=== PATIENT | male | born 1960 ===

== ENCOUNTER → 2022-10-18 13:08 | Outpatient (BNVA) | payer OTHER, SELFPAY | PROVIDERS: PCP Internal Medicine; Visit Provider Physician Assistant Surgical ==

== ENCOUNTER 2022-11-14 11:06 | Outpatient (REF) | payer OTHER, SELFPAY ==
[2022-11-15 14:36] LABS: H Pylori Breath Test Negative (Negative)
== END 2022-11-14 11:07 | disposition home or self-care (01) ==
LOC: HO.LNP 11:06
PROVIDERS: PCP Internal Medicine; Visit Provider Physician Assistant
DX: Z01.818 Encounter for other preprocedural examination (principal); E66.01 Morbid (severe) obesity due to excess calories; I10 Essential (primary) hypertension; E11.9 Type 2 diabetes mellitus without complications; E78.5 Hyperlipidemia, unspecified; Z71.3 Dietary counseling and surveillance
CPT/HCPCS: 83013; 99211

== ENCOUNTER 2022-11-14 11:06 | Outpatient (AMB) | payer OTHER, SELFPAY ==
--- NOTE | 2022-11-14 11:08 | A.OFFVIS_ITS ---
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 He was referred to us by his PCP. His goal is to have a healthy life. . He reports first being concerned about his weight 10 years.. He has tried multiple methods of weight loss including eating healthfully without permanent results. He lives alone. He is unemployed Has right hip pain and told he needs surgery- not seen by Ortho yet. He wakes at: 9am, bed at 10 pm. No naps Has been eating like this fro 6-7 months and has lost 70 lbs during this time. Breakfast:10 am - 2 eggs boiled water. BlackCoffee sometimes, small amoutnt of sugar Lunch: 2:30 - 3pm- meat and vegetables rice infrequently. water Dinner: 6-7 pm - meat and vegetables After dinner: none Other snacks: none Liquids: No soda, no juice or sweetened drinks Alcohol intake: 1 beer per year, tobacco: 1 cigarette per month, marijuana: uses it for right hip pain. Exercise: Uses walker for ambulation. Pool exercise - 4 - 5d/ week - depending on hip pain NE: 6 ESS: 21 GERD: 0 QOL: 146 PFSH Medical History (Updated 11/14/22 @ 12:57 by Colette Barrera PA-C) Pre-op evaluation Surgical History (Updated 11/14/22 @ 09:50 by KIMBERLY Kwan) H/O colonoscopy Social History (Updated 11/14/22 @ 11:22 by KIMBERLY Kwan) Household Members: None Housing: Apartment Alcohol intake: never Patient Tobacco Use Status: Never used Tobacco Current occupational status: unemployed Physical Exam Vital Signs: Last Vital Signs Temp 98.0 F 11/14/22 11:18 Pulse 54 11/14/22 11:18 Resp 16 11/14/22 11:18 BP 163/71 H 11/14/22 11:18 Pulse Ox 95 11/14/22 11:18 Oxygen Delivery Method Room Air 11/14/22 11:18 BMI result Body Mass Index 59.8 Const General: cooperative, no acute distress and well developed Nutritional Appearance: obese Orientation/consciousness: patient oriented x3 HEENT Head: Yes normal to inspection Neck Neck: Yes normal visual inspection Thyroid: Thyroid normal Resp Effort & Inspection: normal respiratory effort Auscultation: clear to auscultation bilaterally Cardio Rate: regular rate Rhythm: regular rhythm Heart sounds: S1 normal heart sound present, S2 normal heart sound present and no murmurs GI Inspection: No distended and Yes obesity Palpation (GI): Soft to palpation, nontender and no guarding Skin General skin exam: no rashes or lesions noted and other (warm and dry) Wounds: no wounds Hair: normal Neuro General: patient oriented x3 Extrem General: Yes no pedal edema and Yes no calf tenderness Psych Attitude: cooperative Thought process: Normal thought process present Thought content: Normal thought content present Insight: Good insight present (Psych) Judgement: Good judgement present (Psych) Assessment & Plan Assessment & Plan (1) Morbid obesity: Code(s): E66.01 - Morbid (severe) obesity due to excess calories Plan: This is a 61 yo man with morbid obesity and multiple co-morbidities who will start SWL program to prepare for bariatric surgery. Blood work, h pylori , CXR, ECG, Abd ULS and UGI have been ordered. She is being scheduled for RD and BH initial consultations. He will start SWL classes and watch at 3 classes before his next appt with Regina. Pt has lost 70 lbs over the lst 6 months by making multiple changes in his meal and exericse routines. I have ordered a SS also. 1. Adequate sleep of 7-8 hours per night discussed 2. Healthy meal plan - All meals/MR's need to take 20 minutes to complete 10am - 30 gram shake 1 pm - 30 gram shake 4 pm- bar or yogurt 7 pm- dinner of 6 oz lean protein, 6 oz vegetable, 1 serving fruit 9pm- bar or yogurt Exercise - Cardio 4 d week - pool exercises. 3d/wk P E videos for 30 minutes Pt will purchase body composition analyzer (recommended list given to patient) and weight herself weekly. Next appt with me in 3 weeks. Text me with any questions and weekly weights. Patient is morbidly obese and is not considered stable at this time.?I spent a total of 60 minutes reviewing/updating records, examining the patient and counseling the patient on weight management as detailed above. (2) HTN (hypertension), benign: Code(s): I10 - Essential (primary) hypertension (3) Diabetes mellitus: Code(s): E11.9 - Type 2 diabetes mellitus without complications (4) Hyperlipidemia: Code(s): E78.5 - Hyperlipidemia, unspecified Orders: Orders Insulin Today E11.9 - Type 2 diabetes mellitus without complications, E66.01 - Morbid (severe) obesity due to excess calories, E78.5 - Hyperlipidemia, unspecified, I10 - Essential (primary) hypertension, Z01.818 - Encounter for other preprocedural examination IRON PROFILE Today E11.9 - Type 2 diabetes mellitus without complications, E66.01 - Morbid (severe) obesity due to excess calories, E78.5 - Hyperlipidemia, unspecified, I10 - Essential (primary) hypertension, Z01.818 - Encounter for other preprocedural examination Complete Blood Count Auto Diff Today E11.9 - Type 2 diabetes mellitus without complications, E66.01 - Morbid (severe) obesity due to excess calories, E78.5 - Hyperlipidemia, unspecified, I10 - Essential (primary) hypertension, Z01.818 - Encounter for other preprocedural examination Comprehensive Met. Panel Today E11.9 - Type 2 diabetes mellitus without complications, E66.01 - Morbid (severe) obesity due to excess calories, E78.5 - Hyperlipidemia, unspecified, I10 - Essential (primary) hypertension, Z01.818 - Encounter for other preprocedural examination PTHI Today E11.9 - Type 2 diabetes mellitus without complications, E66.01 - Morbid (severe) obesity due to excess calories, E78.5 - Hyperlipidemia, unspecified, I10 - Essential (primary) hypertension, Z01.818 - Encounter for other preprocedural examination H Pylori Breath Test Today E11.9 - Type 2 diabetes mellitus without complications, E66.01 - Morbid (severe) obesity due to excess calories, E78.5 - Hyperlipidemia, unspecified, I10 - Essential (primary) hypertension, Z01.818 - Encounter for other preprocedural examination US abdomen comp w elastography Today E11.9 - Type 2 diabetes mellitus without complications, E66.01 - Morbid (severe) obesity due to excess calories, E78.5 - Hyperlipidemia, unspecified, I10 - Essential (primary) hypertension, Z01.818 - Encounter for other preprocedural examination XR chest 2V Today E11.9 - Type 2 diabetes mellitus without complications, E66.01 - Morbid (severe) obesity due to excess calories, E78.5 - Hyperlipidemia, unspecified, I10 - Essential (primary) hypertension, Z01.818 - Encounter for other preprocedural examination ECG 12 lead EKG Today E11.9 - Type 2 diabetes mellitus without complications, E66.01 - Morbid (severe) obesity due to excess calories, E78.5 - Hyperlipidemia, unspecified, I10 - Essential (primary) hypertension, Z01.818 - Encounter for other preprocedural examination FL upper GI w air Today E11.9 - Type 2 diabetes mellitus without complications, E66.01 - Morbid (severe) obesity due to excess calories, E78.5 - Hyperlipidemia, unspecified, I10 - Essential (primary) hypertension, Z01.818 - Encounter for other preprocedural examination RT home sleep study Today E66.01 - Morbid (severe) obesity due to excess calories, R40.0 - Somnolence Lipid Panel Today E11.9 - Type 2 diabetes mellitus without complications, E66.01 - Morbid (severe) obesity due to excess calories, E78.5 - Hyperlipidemia, unspecified, I10 - Essential (primary) hypertension, Z01.818 - Encounter for other preprocedural examination Vitamin B12 and Folate Today E11.9 - Type 2 diabetes mellitus without complications, E66.01 - Morbid (severe) obesity due to excess calories, E78.5 - Hyperlipidemia, unspecified, I10 - Essential (primary) hypertension, Z01.818 - Encounter for other preprocedural examination Zinc Today E11.9 - Type 2 diabetes mellitus without complications, E66.01 - Morbid (severe) obesity due to excess calories, E78.5 - Hyperlipidemia, unspecified, I10 - Essential (primary) hypertension, Z01.818 - Encounter for other preprocedural examination Vitamin B1 Today E11.9 - Type 2 diabetes mellitus without complications, E66.01 - Morbid (severe) obesity due to excess calories, E78.5 - Hyperlipidemia, unspecified, I10 - Essential (primary) hypertension, Z01.818 - Encounter for other preprocedural examination Vitamin A Today E11.9 - Type 2 diabetes mellitus without complications, E66.01 - Morbid (severe) obesity due to excess calories, E78.5 - Hyperlipidemia, unspeci fied, I10 - Essential (primary) hypertension, Z01.818 - Encounter for other preprocedural examination C Reactive Protein Today E11.9 - Type 2 diabetes mellitus without complications, E66.01 - Morbid (severe) obesity due to excess calories, E78.5 - Hyperlipidemia, unspecified, I10 - Essential (primary) hypertension, Z01.818 - Encounter for other preprocedural examination Ferritin Today E11.9 - Type 2 diabetes mellitus without complications, E66.01 - Morbid (severe) obesity due to excess calories, E78.5 - Hyperlipidemia, unspecified, I10 - Essential (primary) hypertension, Z01.818 - Encounter for other preprocedural examination TSH reflex Free T4 Today E11.9 - Type 2 diabetes mellitus without complications, E66.01 - Morbid (severe) obesity due to excess calories, E78.5 - Hyperlipidemia, unspecified, I10 - Essential (primary) hypertension, Z01.818 - Encounter for other preprocedural examination Vitamin D 25-OH Total Today E11.9 - Type 2 diabetes mellitus without complications, E66.01 - Morbid (severe) obesity due to excess calories, E78.5 - Hyperlipidemia, unspecified, I10 - Essential (primary) hypertension, Z01.818 - Encounter for other preprocedural examination Hemoglobin A1c Today E11.9 - Type 2 diabetes mellitus without complications, E66.01 - Morbid (severe) obesity due to excess calories, E78.5 - Hyperlipidemia, unspecified, I10 - Essential (primary) hypertension, Z01.818 - Encounter for other preprocedural examination Referrals Behavioral Health Referral E11.9 - Type 2 diabetes mellitus without complications, E66.01 - Morbid (severe) obesity due to excess calories, E78.5 - Hyperlipidemia, unspecified, I10 - Essential (primary) hypertension, Z01.818 - Encounter for other preprocedural examination Nutrition/Dietitian Referral E11.9 - Type 2 diabetes mellitus without complications, E66.01 - Morbid (severe) obesity due to excess calories, E78.5 - Hyperlipidemia, unspecified, I10 - Essential (primary) hypertension, Z01.818 - Encounter for other preprocedural examination Coding Level of Care Code New Pt Level 5 (68660) Diagnoses Morbid obesity E66.01 HTN (hypertension), benign I10 Diabetes mellitus E11.9 Hyperlipidemia E78.5
[2022-11-14 11:18] VITALS: BP 163/71; PULSE 54; RESP 16; TEMP 36.7; O2SAT 95; BMI 59.8
== END 2022-11-14 12:59 | disposition home or self-care (01) ==
PROVIDERS: PCP Internal Medicine; Visit Provider Physician Assistant
DX: E66.01 Morbid (severe) obesity due to excess calories (principal); Z68.43 Body mass index [BMI] 50.0-59.9, adult; E11.9 Type 2 diabetes mellitus without complications; I10 Essential (primary) hypertension; E78.5 Hyperlipidemia, unspecified
CPT/HCPCS: 99205

== ENCOUNTER 2022-12-03 08:31 | Outpatient (REF) | payer OTHER, SELFPAY ==
--- NOTE | ~2022-12-03 | XR_ITS ---
EXAMINATION: XR CHEST CLINICAL INFORMATION: Morbid (severe) obesity due to excess calories COMPARISON: None available. TECHNIQUE: 2 views of the chest were obtained. FINDINGS: Lung volumes are low. No significant abnormality is noted involving the heart, lungs, mediastinum or soft tissues. There are moderate degenerative changes of the thoracic spine. There is loss of height of multiple mid thoracic vertebral bodies. XR/XR chest 2V IMPRESSION: No acute cardiopulmonary disease.
[2022-12-03 08:52] LABS: MANUAL DIFF FLAG NO
[2022-12-03 09:07] LABS: Basophils Percent Auto 0.4 % (0-2); Eosinophils Absolute Auto 0.1 X10*3/uL (0.0-0.4); Eosinophils Percent Auto 1.5 % (0-4); Hematocrit 48.2 % (42.0-52.0); Hemoglobin 16.1 g/dl (14.0-18.0); Imm Gran Abs Auto 0.02 X10*3/uL (0.00-0.03); Imm Gran Pct Auto 0.2 % (0.0-0.4); Lymphocytes Absolute Auto 3.6 X10*3/uL (1.2-4.9); Lymphocytes Percent Auto 38.5 % (20-40); Mean Corpuscular HGB Conc 33.4 g/dl (31.0-36.0); Mean Corpuscular Volume 89.8 fL (80.0-98.0); Mean Platelet Volume 9.6 fL (9.4-12.4); Monocytes Absolute Auto 0.6 X10*3/uL (0.1-1.2); Monocytes Percent Auto 6.9 % (2-11); Neutrophils Absolute Auto 4.9 x10*3/uL (2.0-8.3); Neutrophils Percent Auto 52.5 % (45-73); Platelet Count 235 X10*3/uL (160-400); Red Blood Count 5.37 X10*6/uL (4.60-5.80); Red Cell Distribution Width 13.1 % (11.0-16.0); White Blood Count 9.3 X10*3/uL (4.8-10.8)
[2022-12-03 09:49] LABS: Alanine Aminotransferase 21 U/L (0-40); Alkaline Phosphatase 63 U/L (39-117); Anion Gap 13 (12-20); Aspartate Amino Transferase 14 U/L (5-37); Bilirubin Total 0.8 mg/dL (0.0-1.0); Blood Urea Nitrogen 24 mg/dL (9-16); C Reactive Protein 0.23 mg/dL (< or = 0.50); Calcium 9.4 mg/dL (8.4-10.2); Carbon Dioxide 22 mmol/L (22-29); Chloride 109 mmol/L (96-108); Cholesterol 228 mg/dL (<200); Estimated Glomerular Filt Rate > 60; Glucose Random 147 mg/dL (60-115); HDL Cholesterol 36 mg/dL (>40); Iron 180 mcg/dL (45-160); LDL Cholesterol Calculated 150 mg/dL (<100); Percent Iron Saturation 60 % (15-50); Sodium 140 mmol/L (135-145); Total Iron Binding Capacity 300 mcg/dL (228-428); Total Protein 7.7 g/dL (6.5-8.0); Triglycerides 211 mg/dL (<150); Unsaturated Iron Binding 120 ug/dL
[2022-12-03 09:51] LABS: Estimated Average Glucose 137 mg/dL; Hemoglobin A1c % 6.4 % (<6.0)
[2022-12-03 10:09] LABS: Ferritin 309 ng/mL (20-250); Insulin 11 uU/mL (2-29); TSH reflex Free T4 2.03 uIU/mL (0.32-4.0); Vitamin D 25-OH Total 26.6 ng/mL (>30)
[2022-12-03 10:12] LABS: Folate 14.4 ng/mL (> or = 4.0); Vitamin B12 380 pg/mL (200-900)
[2022-12-04 15:48] LABS: Calcium (PTHI) 9.4 mg/dL (8.6-10.3); PTHI 95 pg/mL (16-77)
[2022-12-05 15:19] LABS: Zinc 79 mcg/dL (60-130)
[2022-12-07 04:58] LABS: Vitamin A 53 mcg/dL (38-98)
[2022-12-08 10:28] LABS: Vitamin B1 14 nmol/L (8-30)
== END 2022-12-03 08:32 | disposition home or self-care (01) ==
LOC: HO.XRAY 08:31
PROVIDERS: PCP Internal Medicine; Visit Provider Physician Assistant
DX: Z01.818 Encounter for other preprocedural examination (principal); E66.01 Morbid (severe) obesity due to excess calories; I10 Essential (primary) hypertension; E11.9 Type 2 diabetes mellitus without complications; E78.5 Hyperlipidemia, unspecified
CPT/HCPCS: 36415; 71046; 80053; 80061; 82306; 82607; 82728; 82746; 83036; 83525; 83540; 83970; 84425; 84443; 84590; 84630; 85025; 86140

== ENCOUNTER 2022-12-11 11:06 | Outpatient (AMB) | payer OTHER, SELFPAY ==
--- NOTE | 2022-12-11 11:17 | MHC.AMNUTRGE ---
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 Reason for consult elevated BMI Diet Assmnt Details Pt states he feels much better, more energy, easier to wake up in the morning 10am shake 1 scoop Orgain 8oz water - also adds fruit - was advised to discontinue this 2 eggs 1pm another shake made the same way 4-5pm dinner salad and chicken 7pm yogurt or protein bar - fitcrunch Dietary counseling reduction Learning/Education Educational materials provided Yes Most Recent Diabetes Results: Cholesterol 228 mg/dL (<200) H 12/03/22 HDL Cholesterol 36 mg/dL (>40) L 12/03/22 Triglycerides 211 mg/dL (<150) H 12/03/22 Creatinine 0.96 mg/dL (0.5-1.4) 12/03/22 Blood Urea Nitrogen 24 mg/dL (9-16) H 12/03/22 Sodium 140 mmol/L (135-145) 12/03/22 Potassium 4.0 mmol/L (3.3-5.1) 12/03/22 Chloride 109 mmol/L (96-108) H 12/03/22 Carbon Dioxide 22 mmol/L (22-29) 12/03/22 Calcium 9.4 mg/dL (8.4-10.2) 12/03/22 AST 14 U/L (5-37) 12/03/22 ALT 21 U/L (0-40) 12/03/22 Total Protein 7.7 g/dL (6.5-8.0) 12/03/22 Albumin 4.0 g/dL (3.5-5.0) 12/03/22 [facility] Medical History (Updated 11/14/22 @ 12:57 by Colette Barrera PA-C) Pre-op evaluation Surgical History (Updated 11/14/22 @ 09:50 by KIMBERLY Kwan) H/O colonoscopy Social History (Updated 11/14/22 @ 11:22 by KIMBERLY Kwan) Household Members: None Housing: Apartment Alcohol intake: never Patient Tobacco Use Status: Never used Tobacco Current occupational status: unemployed Assessment & Plan Assessment & Plan (1) Morbid obesity: Code(s): E66.01 - Morbid (severe) obesity due to excess calories Patient Instructions: pt is cleared for bariatric surgery. will continue follow ups with team adn encouraged communication as needed with office Coding Level of Care Code Nutr Indiv Intake (98291) Diagnoses Morbid obesity E66.01 Time Spent (min) 30
[2022-12-11 13:08] VITALS: BMI 57.6
== END 2022-12-11 12:43 | disposition home or self-care (01) ==
PROVIDERS: PCP Internal Medicine; Visit Provider Dietitian, Registered
DX: E66.01 Morbid (severe) obesity due to excess calories (principal)

== ENCOUNTER → 2022-12-11 11:06 | Outpatient (BNVA) | payer OTHER, SELFPAY | PROVIDERS: PCP Internal Medicine; Visit Provider Dietitian, Registered | DX: E66.01 Morbid (severe) obesity due to excess calories (principal); Z68.43 Body mass index [BMI] 50.0-59.9, adult | CPT/HCPCS: 97802 ==

== ENCOUNTER 2022-12-18 09:30 | Outpatient (AMB) | payer OTHER, SELFPAY ==
--- NOTE | 2022-12-18 09:36 | MHC.OFFVISWM ---
Intake VS Expanded 12/18/22 09:48 Height 5 ft 8 in Weight 379 lb BMI 57.6 Intake Visit Reasons: VIDEO F/U SWL Allergies No Known Allergies Allergy (Verified 11/14/22 11:20) HPI HPI Comments History of Present Illness Details This is the patients second appt for SWL. Starting weight was 393.1 lbs on 11/14/22. TBWL is 14.1 lbs or 3.6% TBWL by his weight in our office 2 days ago. He has not bought a scale yet. Meal plan: feels incredible! 10am - Orgain powder with aqua, with2 hb eggs 1pm - another shake 5pm - (uses scale and has 6 - 8 oz)protein air fried and vegetables 9pm yogurt Exercise plan: exercise in pool for 80 minutes, 4 d/week.Can not exercise out of p[ool ofr now. Pre op work up completed as follows: SWL classes - 09/25 appts - Maria 12/20 RD appts - cleared H pylori - negative Labs - done CXR normal ECG - not done yet ULS and UGI - 12/20 and 12/24 [facility] Medical History (Updated 11/14/22 @ 12:57 by Colette Barrera PA-C) Pre-op evaluation Surgical History (Updated 11/14/22 @ 09:50 by KIMBERLY Kwan) H/O colonoscopy Social History (Updated 11/14/22 @ 11:22 by KIMBERLY Kwan) Household Members: None Housing: Apartment Alcohol intake: never Patient Tobacco Use Status: Never used Tobacco Current occupational status: unemployed Assessment & Plan Assessment & Plan (1) Morbid obesity: Code(s): E66.01 - Morbid (severe) obesity due to excess calories Plan: Good start and excellent meal plan so far. We discussed that he can not exercise out of the pool yet and he will continue his present routien for now. Meal plan - measure dinner in 12 forks each of protein and vegetable He MUST purchase a scale now and send me his weights weekly. Has many appts this week - all reviewed will also get ECG doen thsi week Next appt with me in 3 weeks. Patient is still morbidly obese and is not considered stable at this time. I spent 27 minutes in total speaking with the patient via video conference counseling , reviewing records and charting in patients chart. . (2) HTN (hypertension), benign: Code(s): I10 - Essential (primary) hypertension (3) Diabetes mellitus: Code(s): E11.9 - Type 2 diabetes mellitus without complications (4) Hyperlipidemia: Code(s): E78.5 - Hyperlipidemia, unspecified Telehealth Telehealth Location of provider rendering services: practice address Location of patient: address on file Patient Identification confirmed using: Name, : Yes Telehealth method: video Patient verbally consented to treatment: Yes Patient verbally consented to billing insurance company: Yes Patient informed of any privacy concerns related to visit: Yes Coding Level of Care Code Tele Est Pt Level 4 (50653) Diagnoses Morbid obesity E66.01 HTN (hypertension), benign I10 Diabetes mellitus E11.9 Hyperlipidemia E78.5
[2022-12-18 09:48] VITALS: BMI 57.6
== END 2022-12-18 10:00 | disposition home or self-care (01) ==
LOC: HO.HBS 09:58
PROVIDERS: PCP Internal Medicine; Visit Provider Physician Assistant
DX: E66.01 Morbid (severe) obesity due to excess calories (principal); Z68.43 Body mass index [BMI] 50.0-59.9, adult; I10 Essential (primary) hypertension; E11.9 Type 2 diabetes mellitus without complications; E78.5 Hyperlipidemia, unspecified
CPT/HCPCS: 99213

== ENCOUNTER → 2022-12-18 09:30 | Outpatient (BNVA) | payer OTHER, SELFPAY | PROVIDERS: PCP Internal Medicine; Visit Provider Physician Assistant ==

== ENCOUNTER 2022-12-20 07:38 | Outpatient (REF) | payer OTHER, SELFPAY ==
--- NOTE | ~2022-12-20 | FL_ITS ---
EXAMINATION: XR FLUOROSCOPY UPPER GI WITH AIR CLINICAL INFORMATION: Preop evaluation for bariatric surgery COMPARISON: None TECHNIQUE: Fluoroscopic air contrast upper GI examination was performed utilizing standard techniques with thin and thick barium and effervescent granules. Numerous spot images were obtained. Fluoroscopic image hold cine runs were also obtained. FINDINGS: No abnormality noted in the hypopharynx. No laryngeal penetration. Dual and single contrast images of the esophagus demonstrate normal caliber, contour, and mucosal pattern. No evidence of stricture, mass, or ulcerations identified. Primary esophageal peristalsis was normal. There are some tertiary contractions that are nonpulsatile, which indicate mild esophageal dysmotility. A tiny type I hiatal hernia is present. Gastroesophageal reflux is seen up to the thoracic inlet. Dual contrast and single contrast images of the stomach demonstrated normal contour and mucosal pattern without evidence of mass, ulceration, or other abnormality. Contrast freely passed into the gastric antrum and duodenal bulb without delay. Single and air-contrast images of the duodenal bulb demonstrate no abnormality. The duodenal sweep has a normal appearance, course, and mucosal fold appearance. The imaged proximal jejunum has a normal fold pattern and caliber. Incidental note made of [id number] mid and inferior thoracic and lumbar degenerative spondylosis. FLUOROSCOPY TIME: 4 minutes. Number of Spot Images: 6 Number of cine: 6 DOSE AREA PRODUCT: 11499 uGy-m2 (microgray-meter squared) FL/FL upper GI w air IMPRESSION: 1. Mild presbyesophagus 2. Tiny type I hiatal hernia 3. Significant gastroesophageal reflux noted to the level of the thoracic inlet. 4. Normal stomach, duodenal bulb, sweep, and proximal jejunum. This procedure was performed by Bright Martin PA-C, and supervised by Dr. Toledo.
--- NOTE | 2022-12-20 08:33 | ECG_ITS ---
Test Reason : morbid obesity Blood Pressure : / mmHG Vent. Rate : 058 BPM Atrial Rate : 058 BPM P-R Int : 144 ms QRS Dur : 076 ms QT Int : 412 ms P-R-T Axes : 048 -21 016 degrees QTc Int : 404 ms Sinus bradycardia Low voltage QRS Borderline ECG No previous ECGs available Referred By: Colette Barrera Electronically Signed By:BRITTANY PACK MD
== END 2022-12-20 07:39 | disposition home or self-care (01) ==
LOC: HO.XRAY 07:38
PROVIDERS: PCP Internal Medicine; Visit Provider Physician Assistant
DX: Z01.818 Encounter for other preprocedural examination (principal); E66.01 Morbid (severe) obesity due to excess calories; I10 Essential (primary) hypertension; E11.9 Type 2 diabetes mellitus without complications; E78.5 Hyperlipidemia, unspecified
CPT/HCPCS: 74246; 93005

== ENCOUNTER → 2022-12-20 07:39 | Outpatient (BNV) | payer OTHER, SELFPAY | PROVIDERS: PCP Internal Medicine; Visit Provider Radiology Diagnostic Radiology | DX: E66.01 Morbid (severe) obesity due to excess calories (principal); Z01.818 Encounter for other preprocedural examination | CPT/HCPCS: 74246 ==

== ENCOUNTER 2022-12-24 07:44 | Outpatient (REF) | payer OTHER, SELFPAY ==
--- NOTE | ~2022-12-24 | US_ITS ---
EXAMINATION: US COMPLETE ABDOMEN WITH LIVER ELASTOGRAPHY CLINICAL INFORMATION: Obesity. COMPARISON: None available. TECHNIQUE: Real-time imaging of the abdominal viscera. Noninvasive ultrasound liver fibrosis assessment is performed using Stevie ElastPQ point quantification shear wave elastography (2D-SWE) with a C5-2 MHz transducer. Multiple elastography samples are obtained. FINDINGS: PANCREAS: Largely obscured by overlapping bowel gas. ABDOMINAL AORTA: The proximal, middle, and distal aortic segments are normal in caliber. INFERIOR VENA CAVA: Visualized portions are normal. LIVER: The liver demonstrates normal size, contour and increased echogenicity. No focal lesion or intrahepatic biliary duct dilatation. The right lobe measures 17.9 cm in length. The left lobe measures 9.6 cm in length. Portal flow is towards the liver (hepatopetal). Shear wave liver elastography median stiffness is 1.63 m/s (reference: normal median stiffness is 1.3 m/s or less). IQR/median stiffness to assess sampling precision is 0.14 (reference: good quality data set is IQR/median stiffness of 0.15 or less). GALLBLADDER: Normal. The gallbladder is physiologically distended without evidence of stones, sludge, polyps, wall thickening or pericholecystic fluid. COMMON BILE DUCT: Normal in caliber measuring 0.4 cm in diameter. RIGHT KIDNEY: Normal. No hydronephrosis. No renal calculi or focal parenchymal lesions. The kidney measures 10.1 cm in maximum dimension. LEFT KIDNEY: Normal. No hydronephrosis. No renal calculi or focal parenchymal lesions. The kidney measures 12.1 cm in maximum dimension. SPLEEN: Normal. The spleen measures 10.8 cm in maximum dimension. FREE FLUID: None. US/US abdomen comp w elastography IMPRESSION: 1. There is mild hepatomegaly. 2. There is generalized increase in hepatic echotexture, consistent with fatty infiltration or hepatocellular disease. Please correlate clinically. No focal hepatic mass or intrahepatic biliary dilatation is seen. 3. Liver elastography: In the absence of other known clinical signs, measurements rule out compensated advanced chronic liver disease. If there are known clinical signs, further testing may be needed for confirmation. REFERENCE: Society of Radiologists in Ultrasound Liver Stiffness Thresholds (2020): LIVER STIFFNESS THRESHOLDS: *Liver Stiffness equal or less than 1.3 m/s: High probability of being normal. *Liver Stiffness less than 1.7 m/s: In the absence of other known clinical signs, rules out compensated advanced chronic liver disease. *Liver Stiffness 1.7-2.1 m/s: Suggestive of compensated advanced chronic liver disease but need further test for confirmation. *Liver Stiffness over 2.1 m/s: Rules in compensated advanced chronic liver disease. *Liver Stiffness over 2.4 m/s: Suggestive of clinically significant portal hypertension. QUALITY OF DATA SET: *IQR/Median value equal or less than 0.15 implies a quality data set. *IQR/Median value over 0.15 implies a poor quality data set. SIGNIFICANT CHANGE FROM PRIOR EXAM: Significant change if liver stiffness measurement is 10% or greater from prior exam. OTHER CONSIDERATIONS: The stage of liver fibrosis may be overestimated in the setting of acute hepatitis, liver inflammation, elevated liver function tests, hepatic vascular congestion, obstructive cholestasis, non-fasting state, and infiltrative diseases such as amyloidosis and lymphoma. In some patients with NAFLD, the liver stiffness thresholds for compensated advanced chronic liver disease may be lower. In causes other than viral hepatitis and NAFLD, liver stiffness thresholds are not well established.
== END 2022-12-24 07:45 | disposition home or self-care (01) ==
LOC: HO.US 07:44
PROVIDERS: PCP Internal Medicine; Visit Provider Physician Assistant
DX: Z01.818 Encounter for other preprocedural examination (principal); E66.01 Morbid (severe) obesity due to excess calories; I10 Essential (primary) hypertension; E11.9 Type 2 diabetes mellitus without complications; E78.5 Hyperlipidemia, unspecified
CPT/HCPCS: 76705; 76981

== ENCOUNTER → 2022-12-25 14:17 | Outpatient (REF) | payer OTHER, SELFPAY | LOC: HO.SL 14:17 | PROVIDERS: PCP Internal Medicine; Visit Provider Physician Assistant | DX: Z13.89 Encounter for screening for other disorder (principal) ==

== ENCOUNTER 2022-12-26 09:23 | Outpatient (AMB) | payer OTHER, SELFPAY ==
--- NOTE | 2022-12-26 09:21 | MHC.WMTHER ---
Intake Intake Visit Reasons: (TV) BH Intake Allergies No Known Allergies Allergy (Verified 11/14/22 11:20) [facility] Medical History (Updated 11/14/22 @ 12:57 by Colette Barrera PA-C) Pre-op evaluation Surgical History (Updated 11/14/22 @ 09:50 by KIMBERLY Kwan) H/O colonoscopy Social History (Updated 11/14/22 @ 11:22 by KIMBERLY Kwan) Household Members: None Housing: Apartment Alcohol intake: never Patient Tobacco Use Status: Never used Tobacco Current occupational status: unemployed Behavioral Health Assessment Weight Management Therapy Therapy Notes Details Pt is a 61 years old male, who presents for initial behavioral health assessment as part of surgical weight-loss program. PT shares his intereste in bariatric surgery due to medical issues and physical challenges he wants to overcome. PT denied any history of mental health treatment and or past hospitalization/crisis for behavioral health. Denies any safety concerns around SI and/or self-other harm, also there is no history of substance use reported. There is also no evidence for stress/emotional-eating, and scores from BES suggest minimal risk for binge eating behavior. PHQ- scores also showed no active symptoms/concerns with depression. Mental status exam is withing normal limits, suggesting person's functioning is not impaired. At this time patient is cleared from the behavioral health standpoint. Presenting Concerns Referral Source WMP Provider. PT sees Colette Pugh Reason for referral Completion of behavioral health assessment as part of process for weight-loss surgery. Precipitating Event Obesity and other medical issues related to his weight. Living Situation Current Living Situation Rent At risk of losing current housing? No Satisfied with current living situation? Yes Comments Pt lives alone. Food/Weight/Diet Expectations of change PT started program at 393Lbs. He needs to loss 10% of that before surgery. He has lost 14Lbs as of 12/18. History/Relationship with food PT reports he used to snack a lot, had big portions, a multiple carbs in 1 meal. Also was eating fast food and sweets a lot. . Example of meals before starting program Breakfast: 2 hard boiled eggs with oil, with crackers and coffee with sugar. AM snack: none Lunch: @2pm any potatoes/yuca/name with any meat in the air fryer. W/ water. Dinner: leftovers from lunch. picking here and there trough the day , Example: crackers with hoover, coffee w/ sugar. History/Relationship with weight Highest weight was last year, 440Lbs. He started doing a diet on his own and insulin was changed so his appetite decreased. When started the program he was 393Lbs. 5 years ago he was around 460Lbs. He doesn't remember when he was under 200Lbs. But believes was on his 20's before getting in a relationship. And, he has not been under 300Lbs more than 10 years ago. Reports she has been overweight all of his life. History/Relationship with dieting Never tried any formal diet or medication for weight loss. Diet/exercise. Younger he was able to lost weight rapid, but as older he gets then he has a harder time losing weight. In the past year he has been able to lose 50Lbs as his PCP give him some nutrition counseling and insulin was changed and helped him with appetite. Binge Eating Do you frequently eat large amounts of food in short periods of time, not feeling physically hungry? No Do you feel out of control when you eat a large amount of food in a short period of time? Yes Do you eat large amounts of food rapidly and typically alone? Yes Night Eating Do you wake up at least once during the night to eat? No If you wake up in the night, do you find that it is necessary to eat something in order to fall back asleep? No Do you have little or no appetite in the morning and feel very hungry in the evening, often overeating between dinner and when you go to bed? No Social History Family history and relationship Pt is single. He has 3 adult children and 9 grandkids. 1 son lives in [place] and 1 son and 1 daughter living in [place]. They all have good communication. 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 Developmental history and status None reported. Social support He's has a cousin who lives close to him and help him with his appointments. Community support PCP. Hindu/Spirituality [place]. Cultural/Ethnic information PT was born in [place]. Living in [place] 3 years ago as most of his family was here. Pt is Hungarian-speaking only. Legal Involvement and History Current or historical involvement with the legal system? None reported. Education Highest grade completed HS diploma. Associate Degree in computer technology. 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 Preferred learning style Written and Learn by doing Currently enrolled in educational program? No Interested in further educational program? No Educational Interests/Skills Home repairs. 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 No Meaningful activities Swimming, listen to music and watch TV. Financial Situation Describe current financial situation Comfortable Financial assistance? Food [place], SSI and Other (Rental assistance.) Service Service? No Mental Health and Addiction Treatment Current/Past substance abuse? Yes Comments Hx of Cannabis use as a teen. Smokes once in a while. Doesn't drink. Current/Past addictive behavior concerns? No Psychiatric history Denies ever been in counseling, take psych meds and/or hospitalized/crisis for MH. Never experiences SI/Sa and/or any other safety concern around self-harm/other-harm. Medical and Physical Health Summary Additional Medical History not covered in history None reported. Sexual History concerns None reported. Physical exam in the last year? Yes Pain Screening Current pain? Yes Pain in the last few months? Yes Comments Hip pain. Has a hard time walking, deals with pain on a daily basis. However, pain has been improving since started the program and is swimming regularly. Medications Is the patient compliant with medications? Yes Does the patient have Herr Guardian in place? Not applicable Does the patient use complimentary health approaches? No Trauma/Abuse History History of trauma? No Questionnaires PHQ-9 Over the last 2 weeks, how often have you been bothered by any of the following problems? 1. Little interest or pleasure in doing things: not at all 2. Feeling down, depressed, or hopeless: not at all 3. Trouble falling or staying asleep, or sleeping too much: not at all 4. Feeling tired or having little energy: not at all 5. Poor appetite or overeating: not at all 6. Feeling bad about yourself - or that you are a failure or have let yourself or your family down: not at all 7. Trouble concentrating on things, such as reading the newspaper or watching television: several days 8. Moving or speaking so slowly that other people could have noticed. Or the opposite - being so fidgety or restless that you have been moving around a lot more than usual: not at all 9. Thoughts that you would be better off or of hurting yourself in some way: not at all Total score: 1 Depression Screening Interpretation: Negative Depression Screening Done: Yes 40725 - PHQ-9 Billing: Yes (PHQ-9 Repeated today as he scored high when questionarie was given couple months ago.) Source: Developed by Drs. Abad Blanc, Verónica Marroquin, Ruben Brown and colleagues, with an educational mohan from [employer]. Binge Eating Scale Group 1 A. I don't feel self-conscious about my wt. or body size when I'm with others. B. I feel concerned about how I look to others, but it normally does not make me fell disappointed with myself C. I do get self-conscious about my appearance and wt. which makes me feel disappointed in myself. D. I feel very self-conscious about my wt. and frequently I feel intense shame and disgust for myself. I try to avoid social contacts because of my self-consciousness. Response Group 1: A Group 2 A. I don't have any difficulty eating slowly in the proper manner. B. Although I seem to gobble down foods, I don't end up feeling stuffed because of eating to much. C. At times, I tend to eat quickly and then, I feel uncomfortably full afterwards. D. I have the habit of bolting down my food, without really chewing it. When this happens I usually feel uncomfortably stuffed because I've eaten to much. Response Group 2: C Group 3 A. I feel capable to control my eating urges when I want to. B. I feel like I have failed to control my eating more than the average person. C. I feel utterly helpless when it comes to feeling in control of my eating urges. D. Because I feel so helpless about controlling my eating I have become very desperate about trying to get control. Response Group 3: B Group 4 A. I don't have the habit of eating when I'm bored. B. I sometimes eat when I'm bored, but often I'm able to get busy and get my mind off food. C. I have a regular habit of eating when I'm bored, but occasionally, I can use some other activity to get my mind off eating. D. I have a strong habit of eating when I'm bored. Nothing seems to help me breath the habit. Response Group 4: B Group 5 A. I'm usually physically hungry when I eat something. B. Occasionally, I eat something on impulse even though I really am not hungry. C. I have the regular habit of eating foods, that I might not really enjoy, to satisfy a hungry feeling even though physically, I don't need the food. D. Although I'm not physically hungry, I get a hungry feeling in my mouth that only seems to be satisfied when I eat a food, like sandwich, that fills my mouth. Sometimes, when I eat the food to satisfy my mouth hunger, I then spit the food out so I won't gain weight. Response Group 5: B Group 6 A. I don't feel any guilt or self-hate after I overeat. B. After I overeat, occasionally I feel guilt or self-hate. C. Almost all the time I experience strong guilt or self-hate after I overeat. Response Group 6: A Group 7 A. I don't lose total control of my eating when dieting even after periods when I overeat. B. Sometimes when I eat a forbidden food on a diet, I feel like I blew it and eat even more. C. Frequently, I have the habit of saying to myself, I've blown it now, why not go all the way, when I overeat on a diet. When that happens I eat more. D. I have a regular habit of starting a strict diets for myself but I break the diets by going on an eating binge. My life seems to be either a feast or famine. Response Group 7: C Group 8 A. I rarely eat so much food that I feel uncomfortably stuffed afterwards. B. Usually about once a month, I each such a quantity of food, I end up feeling very stuffed. C. I have regular periods during the month when I eat large amounts of food, either at mealtime or at snacks. D. I eat so much food that I regularly feel quite uncomfortable after eating and sometimes a bit nauseous. Response Group 8: B Group 9 A. My level of calorie intake does not go up very high or go down very low on a regular basis. B. Sometimes after I overeat, I will try to reduce my caloric intake to almost nothing to compensate for the excess calories I've eaten. C. I have a regular habit of overeating during the night. It seems that my routine is not to be hungry in the morning but overeat in the evening. D. In my adult years, I have had week-long periods where I practically starve myself. This follows periods when I overeat. It seems I live a life of either feast or famine. Response Group 9: B Group 10 A. I usually am able to stop eating when I want to. I know when enough is enough. B. Every so often, I experience a compulsion to eat which I can't seem to control. C. Frequently, I experience strong urges to eat which I seem unable to control, but at other times I can control my eating urges. D. I feel incapable of controlling urges to eat. I have a fear of not being able to stop eating voluntarily. Response Group 10: C Group 11 A. I don't have any problem stopping eating when I feel full. B. I usually can stop eating when I feel full but occasionally overeat leaving me feeling uncomfortably stuffed. C. I have a problem stopping eating once I start and usually I feel uncomfortably stuffed after I eat a meal. D. Because I have a problem not being able to stop eating when I want, I sometimes have to induce vomiting to relieve my stuffed feeling. Response Group 11: B Group 12 A. I seem to eat just as much when I'm with others, Family social gatherings as when I'm by myself. B. Sometimes, when I'm with other persons, I don't eat as much as I want to eat because I'm self-conscious about my eating. C. Frequently, I eat only a small amount of food when others are present, because I'm very embarrassed about my eating. D. I feel so ashamed about overeating that I pick times to overeat when I know no one will see me. I feel like a closet eater. Response Group 12: B Group 13 A. I eat three meals a day with only an occasional between meal snack. B. I eat 3 meals a day, but I also normally snack between meals. C. When I am snacking heavily, I get in the habit of skipping regular meals. D. There are regular periods when I seem to be continually eating, with no planned meals. Response Group 13: A Group 14 A. I don't think much about trying to control unwanted eating urges. B. At least some of the time, I feel my thoughts are pre-occupied with trying to control my eating urges. C. I feel that frequently I spend much time thinking about how much I ate or about trying not to eat anymore. D. It seems to me that most of my waking hours are pre-occupied by thoughts about eating or not eating. I feel like I'm constantly struggling not to eat. Response Group 14: B Group 15 A. I don't think about food a great deal. B. I have strong craving for food but they last only for brief periods of time. C. I have days when I can't seem to think about anything else but food. D. Most of my days seem to be pre-occupied with thoughts about food. I feel like I live to eat. Response Group 15: B Group 16 A. I usually know whether or not I'm physically hungry. I take the right portion of food to satisfy me. B. Occasionally, I feel uncertain about knowing whether or not I'm physically hungry. A these times it's hard to know how much food I should take to satisfy me. C. Even though I might know how many calories I should eat, I don't have any idea what is a normal amount of food for me. Response Group 16: C Binge Eating Score: 17 (BEs repeated today, as he scored 32 indicating high risk for binge eating behavior when questionnaire was given in October.) Score less than 17 Minimal Risk Score between 18-26 Moderate Risk Score between 27-46 High Risk Assessment & Plan Assessment & Plan (1) Eating disorder, unspecified: Code(s): F50.9 - Eating disorder, unspecified Plan PT is cleared from standpoint. PT will follow up with me in about 6 weeks to monitor progress. Next joanne: 02/06/23 at 1:15pm over the phone. Telehealth Telehealth Location of provider rendering services: other Location of patient: address on file Patient Identification confirmed using: Name, : Yes Telehealth method: voice only Patient verbally consented to treatment: Yes Patient verbally consented to billing insurance company: Yes Patient informed of any privacy concerns related to visit: Yes Minutes spent on Phone/Video with Pt.: 50 Coding Level of Care Code New Pt Tele Psy Diag John ([id number]) Patient Type New Diagnoses Eating disorder, unspecified F50.9 Time Spent (min) 50
== END 2022-12-26 10:00 | disposition home or self-care (01) ==
LOC: HO.HBST 09:23
PROVIDERS: PCP Internal Medicine; Visit Provider Counselor Mental Health
DX: F50.9 Eating disorder, unspecified (principal)
CPT/HCPCS: 90791

== ENCOUNTER → 2022-12-26 09:23 | Outpatient (BNVA) | payer OTHER, SELFPAY | PROVIDERS: PCP Internal Medicine; Visit Provider Counselor Mental Health ==

== ENCOUNTER 2023-01-21 10:35 | Outpatient (AMB) | payer OTHER, SELFPAY ==
--- NOTE | 2023-01-21 09:43 | A.OFFVIS_ITS ---
Intake VS Expanded 01/21/23 11:15 BP 146/89 H Blood Pressure Location Rt brachial Blood Pressure Position Sitting Pulse 80 Pulse Source Pulse Oximeter Temp 96.4 F L Temperature Source Tympanic Pulse Oximetry 91 L Oxygen Delivery Method Room Air Height 5 ft 8 in Weight 368 lb BMI 55.9 Body Fat % 47.2 Body Fat Mass 173.8 Fat Free Mass 194.2 Visceral Fat Rating 39.0 Body Water % 42.2 Body Water Mass 155.4 Muscle Mass/Score 184.8 Basal Metabolic Rate/Score 2,814 Intake Visit Reasons: (OV) F/U SWL Allergies No Known Allergies Allergy (Verified 11/14/22 11:20) Medication List - Last Reconciled 01/21/23 by Colette Barrera PA-C atorvastatin 40 mg PO DAILY cholecalciferol (vitamin D3) 50 mcg PO DAILY cyclobenzaprine 5 mg PO BEDTIME PRN dulaglutide (Trulicity) mg subcut fenofibrate 54 mg PO DAILY gemfibrozil 600 mg PO DAILY glipizide mg PO BID irbesartan 300 mg PO DAILY metformin 500 mg PO BID HPI HPI Comments History of Present Illness Details 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 Is recovering from bronchitis. Meal plan: 10 am - Orgain with water 2pm - Orgain with water or Yogurt or bar 4pm - 12 forks of protien and variety o f vegetables 7pm - another shake 9pm - yogurt Exercise - will start again tomorrow. Pool exercises 4 d/week. Tried a video at home and it hurt his hip and he stopped. Pre op work up completed as follows: [facility] classes - 09/25 appts - Maria 12/20, cleared RD appts - cleared H pylori - negative Labs - done CXR normal ECG - Sinus bradycardia Low voltage QRS Borderline ECG No previous ECGs available ULS - fatty liver, L 17.9, R 9.6 UGI - mild presbyesophagus, type 1 HH, significant reflux PFSH Medical History (Updated 11/14/22 @ 12:57 by Colette Barrera PA-C) Pre-op evaluation Surgical History (Updated 11/14/22 @ 09:50 by KIMBERLY Kwan) H/O colonoscopy Social History (Updated 11/14/22 @ 11:22 by KIMBERLY Kwan) Household Members: None Housing: Apartment Alcohol intake: never Patient Tobacco Use Status: Never used Tobacco Current occupational status: unemployed Assessment & Plan Assessment & Plan (1) Morbid obesity: Code(s): E66.01 - Morbid (severe) obesity due to excess calories Plan: Pre op work up completed with 25.1 lbs lost so far. He will continue his meal plan of 2 shakes 1 meal 2 bars or 1 bar and 1 yogurt per day Exercise - continue pool exercises 4d/ week. Start Sit to be Fit videos for 20 minutes 7d/week at home. (He is very resistant to this) Will purchase scale today and start sending me weights weekly, next appt by video in 3 weeks. Patient is morbidly obese and is not considered stable at this time. I spent 30 minutes in total with patient reviewing/updating records, examining the patient and counseling the patient on weight management as detailed above. (2) Diabetes mellitus: Code(s): E11.9 - Type 2 diabetes mellitus without complications (3) Hyperlipidemia: Code(s): E78.5 - Hyperlipidemia, unspecified Plan see above Coding Level of Care Code Est Pt Level 4 (19180) Diagnoses Morbid obesity E66.01 Diabetes mellitus E11.9 Hyperlipidemia E78.5
[2023-01-21 11:15] VITALS: BP 146/89; PULSE 80; TEMP 35.8; O2SAT 91; BMI 55.9
== END 2023-01-21 11:34 | disposition home or self-care (01) ==
PROVIDERS: PCP Internal Medicine; Visit Provider Physician Assistant
DX: E66.01 Morbid (severe) obesity due to excess calories (principal); E11.9 Type 2 diabetes mellitus without complications; E78.5 Hyperlipidemia, unspecified
CPT/HCPCS: 99214

== ENCOUNTER → 2023-01-21 10:35 | Outpatient (BNVA) | payer OTHER, SELFPAY | PROVIDERS: PCP Internal Medicine; Visit Provider Physician Assistant | DX: E66.01 Morbid (severe) obesity due to excess calories (principal); E11.9 Type 2 diabetes mellitus without complications; E78.5 Hyperlipidemia, unspecified; Z68.43 Body mass index [BMI] 50.0-59.9, adult; Z79.85 Long-term (current) use of injectable non-insulin antidiabetic drugs; Z79.84 Long term (current) use of oral hypoglycemic drugs | CPT/HCPCS: 99212 ==

== ENCOUNTER 2023-02-06 13:35 | Outpatient (AMB) | payer OTHER, SELFPAY ==
--- NOTE | 2023-02-06 13:26 | MHC.WMTHER ---
Intake Intake Visit Reasons: VIDEO F/U Allergies No Known Allergies Allergy (Verified 11/14/22 11:20) REPLACED BY [facility] Medical History (Updated 11/14/22 @ 12:57 by Colette Barrera PA-C) Pre-op evaluation Surgical History (Updated 11/14/22 @ 09:50 by KIMBERLY Kwan) H/O colonoscopy Social History (Updated 11/14/22 @ 11:22 by KIMBERLY Kwan) Household Members: None Housing: Apartment Alcohol intake: never Patient Tobacco Use Status: Never used Tobacco Current occupational status: unemployed Behavioral Health Assessment Weight Management Therapy Therapy Notes Details Pt presents for a follow up for support. Discussed functioning and progress. Provided with strategies to manage the holidays. Used supportive strategies for dealing with setbacks and remain consistent. Reviewed also habit building methods and importance of using behavioral activation plan. Pt was active and engaged. Presenting Concerns Referral Source P Provider. PT sees Colette Pugh Reason for referral Completion of behavioral health assessment as part of process for weight-loss surgery. Precipitating Event Obesity and other medical issues related to his weight. Living Situation Current Living Situation Rent At risk of losing current housing? No Satisfied with current living situation? Yes Comments Pt lives alone. Assessment & Plan Assessment & Plan (1) Eating disorder, unspecified: Code(s): F50.9 - Eating disorder, unspecified Plan PT is cleared from standpoint and doing great, proving he's a good candidate for our program. He doesn't need a follow up unless he wants. Advised of available resources in our program and encourage to reach out if needs support. I will see him post-op if needed. Telehealth Telehealth Location of provider rendering services: other Location of patient: address on file Patient Identification confirmed using: Name, : Yes Telehealth method: voice only Patient verbally consented to treatment: Yes Patient verbally consented to billing insurance company: Yes Patient informed of any privacy concerns related to visit: No Minutes spent on Phone/Video with Pt.: 45 Coding Level of Care Code Established Pt Tele Psytx 45 mins ([id number]) Patient Type Established Diagnoses Eating disorder, unspecified F50.9 Time Spent (min) 45
--- OUTSIDE RECORDS SUMMARY | 2023-02-06 13:37 | XMS_ITS | Continuity of Care Document ---
Author Name Unknown Organization [facility] Address [address] [place] [address] ve [address] [place] [address]- Care Team Providers Care Floor Refinisher Name Role Phone Kristel Flores MD Primary Care Physician [phone] Encounter [facility] Date(s): 03/28/22 - 04/27/22 [facility] [address] [place] [address]- us Attending Physician: Gerard Oropeza8 Admitting Physician: Admtr, Ar8 Referring Physician: Admtr, Ar8 Patient Care team information Care Team Personnel Name: Kristel Flores MD Position: [facility] Physician (General Medicine) Member Role: PCP Address: Address: [address] [place] [id number]
--- OUTSIDE RECORDS SUMMARY | 2023-02-06 13:37 | XMS_ITS | Continuity of Care Document ---
Author Name Unknown Organization [facility] Address [address] [place] [address] ve [address] [place] [address]- Care Team Providers Care Program Technician Name Role Phone Kristel Flores MD Primary Care Physician [phone] Encounter [facility] Date(s): 03/28/22 - 04/27/22 [facility] Surgical [address] [place] [address]- [place] Patient Care team information Care Team Personnel Name: Kristel Flores MD Position: S Physician (General Medicine) Member Role: PCP Address: Address: [address] [place] [id number]
--- OUTSIDE RECORDS SUMMARY | 2023-02-06 13:37 | XMS_ITS | Continuity of Care Document ---
Author Name Unknown Organization [facility] Address [address] [place] [address]- Care Team Providers Care Environmental Maintenance Worker Name Role Phone Kristel Flores MD Primary Care Physician Encounter [facility] Date(s): 08/28/22 - 09/27/[address] [address] Patient Care team information Care Team Personnel Name: Kristel Flores MD Position: [facility] Physician - Primary Care Member Role: PCP Address: Address: [address] [place] [id number]
== END 2023-02-06 13:59 | disposition home or self-care (01) ==
LOC: HO.HBST 13:35
PROVIDERS: PCP Internal Medicine; Visit Provider Counselor Mental Health
DX: F50.9 Eating disorder, unspecified (principal)
CPT/HCPCS: 90834

== ENCOUNTER → 2023-02-06 13:35 | Outpatient (BNVA) | payer OTHER, SELFPAY | PROVIDERS: PCP Internal Medicine; Visit Provider Counselor Mental Health ==

== ENCOUNTER 2023-02-13 11:34 | Outpatient (AMB) | payer OTHER, SELFPAY ==
--- NOTE | 2023-02-13 09:58 | A.OFFVIS_ITS ---
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 He has never sent me his weights electronically. Meal bessy: 10 am - 2 hb eggs - if hungry 12pm - shake 2-3 pm - vegetables a a lot and meat 6- 7 oz 6-7pm - an apple and a shake SS - still has not had appt scheduled yet Exercise - does some videos - can't tell me what - every other day. Walks for 10 minutes. Pre op work up completed as follows: [facility] classes - 09/25 BH appts - Maria 12/20, cleared RD appts - cleared H pylori - negative Labs - done CXR normal ECG - Sinus bradycardia Low voltage QRS Borderline ECG No previous ECGs available ULS - fatty liver, L 17.9, R 9.6 UGI - mild presbyesophagus, type 1 HH, significant reflux PFSH Medical History (Updated 11/14/22 @ 12:57 by Colette Barrera PA-C) Pre-op evaluation Surgical History (Updated 11/14/22 @ 09:50 by KIMBERLY Kwan) H/O colonoscopy Social History (Updated 11/14/22 @ 11:22 by KIMBERLY Kwan) Household Members: None Housing: Apartment Alcohol intake: never Patient Tobacco Use Status: Never used Tobacco Current occupational status: unemployed Assessment & Plan Assessment & Plan (1) Morbid obesity: Code(s): E66.01 - Morbid (severe) obesity due to excess calories Plan: Onluy losing 1 lb per week and not sending me his weights, last appt 2 months ago. Meal plan changes 8am -shake 12pm - shake 3pm -meal 6 pm shake 1 snack per day of 2 hb eggs Exercise - not sure what he is doing.... Start LS 1 mile videos stand to sit 7 days per week. Will review and increase at his next appt with me in office in 3 weeks. Milo will schedule in lab SS - seems that he was unable to complete study at home, but can not find any result in his chart. Patient is still morbidly obese and is not considered stable at this time. I spent 30 minutes in total speaking with the patient via video conference mental health counselor ing , reviewing records and charting in patients chart. . (2) Daytime somnolence: Code(s): R40.0 - Somnolence (3) Diabetes mellitus: Code(s): E11.9 - Type 2 diabetes mellitus without complications (4) HTN (hypertension), benign: Code(s): I10 - Essential (primary) hypertension Plan see above Orders: Orders RT PSG in-lab sleep titration Today E11.9 - Type 2 diabetes mellitus without complications, E66.01 - Morbid (severe) obesity due to excess calories, I10 - Essential (primary) hypertension, R40.0 - Somnolence Telehealth Telehealth Location of provider rendering services: practice address Location of patient: address on file Patient Identification confirmed using: Name, : Yes Telehealth method: voice only Patient verbally consented to treatment: Yes Patient verbally consented to billing insurance company: Yes Patient informed of any privacy concerns related to visit: Yes Coding Level of Care Code Tele Est Pt Level 4 (52554) Diagnoses Morbid obesity E66.01 Daytime somnolence R40.0 Diabetes mellitus E11.9 HTN (hypertension), benign I10
[2023-02-13 11:16] VITALS: BMI 55.8
== END 2023-02-13 11:37 | disposition home or self-care (01) ==
LOC: HO.HBS 11:34
PROVIDERS: PCP Internal Medicine; Visit Provider Physician Assistant
DX: E66.01 Morbid (severe) obesity due to excess calories (principal); Z68.43 Body mass index [BMI] 50.0-59.9, adult; E11.9 Type 2 diabetes mellitus without complications
CPT/HCPCS: 99443

== ENCOUNTER → 2023-02-13 11:34 | Outpatient (BNVA) | payer OTHER, SELFPAY | PROVIDERS: PCP Internal Medicine; Visit Provider Physician Assistant ==

== ENCOUNTER 2023-04-15 08:01 | Outpatient (AMB) | payer OTHER, SELFPAY ==
--- NOTE | 2023-04-15 08:12 | MHC.OFFVISWM ---
Intake VS Expanded 04/15/23 08:25 BP 176/77 H Blood Pressure Location Rt brachial Blood Pressure Position Sitting Pulse 72 Pulse Source Pulse Oximeter Temp 97.7 F Temperature Source Temporal Artery Scan Pulse Oximetry 96 Oxygen Delivery Method Room Air Height 5 ft 8 in Weight 353 lb BMI 53.7 Body Fat % 45.8 Body Fat Mass 161.6 Fat Free Mass 191.4 Visceral Fat Rating 37.0 Body Water % 43.3 Body Water Mass 153.0 Muscle Mass/Score 182.2 Basal Metabolic Rate/Score 2,751 Intake Visit Reasons: (OV) F/U SWL Allergies No Known Allergies Allergy (Verified 04/15/23 08:21) HPI HPI Comments History of Present Illness Details SW: prgrSS - still has not had appt scheduled yet 10 am - orgain with w ater, may have 2 b oiled eggs with it . 3pm - 12 forks protein and vegeta bles, water nothin g else for the day Exercise - none. Pre op work up c ompleted as follow s: [facility] classes - 09/25 BH appts - Thea dy 12/20, cleared RD appts - ty red H pylori - ne gative Labs - done CXR normal ECG - Sinus bradycardia Low voltage QRS B orderline ECG No p revious ECGs avail able ULS - fatty l iver, L 17.9, R 9. 6 UGI - mild presb yesophagus, type 1 HH, significant r eflux Missed his last SS study appt again - has not r escheduled it. Meal plan changes 8am -shake 12pm - shake 3pm -meal 6 pm shake 1 snack per day of 2 hb eggs Exercise - not sure what he is doing.... Start LS 1 mile videos stand to sit 7 days per week. Will review and increase at his next appt with me in office in 3 weeks. Milo will schedule in lab SS - seems that he was unable to complete study at home, but can not find any result in his chart. [facility] Medical History (Updated 11/14/22 @ 12:57 by Colette Barrera PA-C) Pre-op evaluation Surgical History H/O colonoscopy Social History Household Members: None Housing: Apartment Alcohol intake: never Patient Tobacco Use Status: Never used Tobacco Current occupational status: unemployed Physical Exam Vital Signs: Last Vital Signs Temp 97.7 F 04/15/23 08:25 Pulse 72 04/15/23 08:25 BP 176/77 H 04/15/23 08:25 Pulse Ox 96 04/15/23 08:25 Oxygen Delivery Method Room Air 04/15/23 08:25 BMI result Body Mass Index 53.7 Assessment & Plan Assessment & Plan (1) Morbid obesity: Code(s): E66.01 - Morbid (severe) obesity due to excess calories Plan: I discussed with patient and his partner Naila that he must follow our meal and exercise plans and he must send me his weight weekly electronically. he has many excuses why he can't do these things. Meal plan; 9am - Orgain with water 12pm- Orgain with water 3pm - 12 forks each 6pm - bar - Zone or Celebrate or 2 hb eggs. Must do Sit to be Fit 20 minute videos each day and increase to 30 minutes after 2 weeks. He needs to have SS rescheduled again, and must send me his weights electronically each week. Next appt with me in 3 weeks. Patient is morbidly obese and is not considered stable at this time. I spent 30 minutes in total with patient reviewing/updating records, examining the patient and counseling the patient on weight management as detailed above. (2) Daytime somnolence: Code(s): R40.0 - Somnolence Plan: SS being rescheduled again Coding Level of Care Code Est Pt Level 4 (96871) Diagnoses Morbid obesity E66.01 Daytime somnolence R40.0
[2023-04-15 08:25] VITALS: BP 176/77; PULSE 72; TEMP 36.5; O2SAT 96; BMI 53.7
== END 2023-04-15 09:06 | disposition home or self-care (01) ==
PROVIDERS: PCP Internal Medicine; Visit Provider Physician Assistant
DX: E66.01 Morbid (severe) obesity due to excess calories (principal); R40.0 Somnolence
CPT/HCPCS: 99214

== ENCOUNTER → 2023-04-15 08:01 | Outpatient (BNVA) | payer OTHER, SELFPAY | PROVIDERS: PCP Internal Medicine; Visit Provider Physician Assistant | DX: E66.01 Morbid (severe) obesity due to excess calories (principal); R40.0 Somnolence; Z68.43 Body mass index [BMI] 50.0-59.9, adult | CPT/HCPCS: 99212 ==

== ENCOUNTER → 2023-04-22 11:45 | Outpatient (BNVA) | payer OTHER, SELFPAY | PROVIDERS: PCP Internal Medicine; Visit Provider Physician Assistant ==

== ENCOUNTER → 2023-05-06 19:30 | Outpatient (REF) | payer OTHER, SELFPAY | LOC: HO.SL 19:30 | PROVIDERS: PCP Internal Medicine; Visit Provider Physician Assistant | DX: R40.0 Somnolence (principal); E11.9 Type 2 diabetes mellitus without complications; I10 Essential (primary) hypertension; E66.01 Morbid (severe) obesity due to excess calories; G47.33 Obstructive sleep apnea (adult) (pediatric); R06.83 Snoring | CPT/HCPCS: 95811 ==

== ENCOUNTER → 2023-05-06 23:54 | Outpatient (BNV) | payer OTHER, SELFPAY | PROVIDERS: PCP Internal Medicine; Visit Provider Internal Medicine | DX: G47.33 Obstructive sleep apnea (adult) (pediatric) (principal) | CPT/HCPCS: 95811 ==

== ENCOUNTER 2023-06-21 07:59 | Outpatient (AMB) | payer OTHER, SELFPAY ==
--- NOTE | 2023-06-21 16:00 | MHC.OFFVISWM ---
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*: Details: Start time: 3.46pm, End time:4.31pm ?I spent 40 minutes speaking with the patient on the phone plus an additional 5 minutes reviewing and updating records for a total of 45 minutes HPI Comments Details: Overall weight loss: 24.8lbs, or 6.28% TBWL Is doing 3 Celebrate Rebuild shakes, one meal and one food snack Cannot exercise due to severe arthritis [facility], [facility] Medical History (Updated 05/14/23 @ 10:15 by Colette Barrera PA-C) Pre-op evaluation Surgical History H/O colonoscopy Social History Household Members: None Housing: Apartment Alcohol intake: never Patient Tobacco Use Status: Never used Tobacco Current occupational status: unemployed Telehealth Telehealth Telehealth Platform: Telephone Location of provider rendering services: practice address Location of patient: address on file Patient Identification confirmed using: Name, : Yes Telehealth method: voice only Patient verbally consented to treatment: Yes Patient verbally consented to billing insurance company: Yes Patient informed of any privacy concerns related to visit: Yes Minutes spent on Phone/Video with Pt.: 45 Assessment & Plan Assessment & Plan (1) Morbid obesity: Code(s): E66.01 - Morbid (severe) obesity due to excess calories Category: Medical Plan: 1) Plan for lap sleeve gastrectomy. If diaphragmatic or ventral hernias are present at time of surgery, these will be repaired laparoscopically as well. Risks and complications were discussed in detail including possible conversion to an open procedure, anastomotic leak, bleeding requiring transfusion, small bowel obstruction, , DVT and pulmonary embolism, cardiac, or pulmonary complications, as fpc complications such as anastomotic ulcer, insufficient weight loss and vitamin deficiencies. I emphasized the importance of close follow-up, adherence to instructions and good communication. 2) New diet plan: Celebrate Rebuild shake (one scoop in 8oz almond milk) at 9am-11am Celebrate protein bar (buy at hospital [employer] shop) 12-2pm Celebrate Rebuild shake (one scoop in 8oz almond milk) at 3pm-5pm Dinner at 6pm (10 forks of protein and 10 forks of salad or vegetables) Celebrate protein bar (buy at hospital [employer] shop) at 8pm-10pm 3) send me weight measurements from your scale today or tomorrow 4) buy a used stationary bike and I will tell you how to use it effectively
== END 2023-06-21 16:32 | disposition home or self-care (01) ==
LOC: HO.HBS 07:59
PROVIDERS: PCP Internal Medicine; Visit Provider Surgery
DX: E66.01 Morbid (severe) obesity due to excess calories (principal); Z68.43 Body mass index [BMI] 50.0-59.9, adult
CPT/HCPCS: 99443

== ENCOUNTER → 2023-06-21 07:59 | Outpatient (BNVA) | payer OTHER, SELFPAY | PROVIDERS: PCP Internal Medicine; Visit Provider Surgery ==

== ENCOUNTER 2023-08-05 08:20 | Outpatient (AMB) | payer OTHER, SELFPAY ==
[2023-08-04 09:36] VITALS: BMI 55.1
--- NOTE | 2023-08-04 09:36 | A.OFFVIS_ITS ---
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* Allergies No Known Allergies Allergy (Verified 08/04/23 09:40) Medication List - Last Reconciled 08/04/23 by Hany Coon MD atorvastatin 40 mg PO DAILY cholecalciferol (vitamin D3) 50 mcg PO DAILY cyclobenzaprine 5 mg PO BEDTIME PRN dulaglutide (Trulicity) mg subcut fenofibrate 54 mg PO DAILY gemfibrozil 600 mg PO DAILY glipizide mg PO BID irbesartan 300 mg PO DAILY metformin 500 mg PO BID ondansetron 4 mg PO Q6H PRN pantoprazole 40 mg PO DAILY polyethylene glycol 3350 17 grams PO DAILY sucralfate 10 mL PO BID HPI HPI TV Pre Op LSG 08/15/23 *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*: Details: Start time: 12.30pm, End time: 1pm ?I spent 25 minutes speaking with the patient on the phone plus an additional 5 minutes reviewing and updating records for a total of 30 minutes HPI Comments Details: Overall weight loss: 32.2lbs, or 8.2% TBWL Is doing a Celebrate Rebuild shake (one scoop in 8oz almond milk) at 9am-11am Celebrate protein bar (buy at hospital [employer] shop) 12-2pm Celebrate Rebuild shake (one scoop in 8oz almond milk) at 3pm-5pm Dinner at 6pm (10 forks of protein and 10 forks of salad or vegetables) Celebrate protein bar (buy at hospital [employer] shop) at 8pm-10pm Exercise: [facility] Medical History (Updated 05/14/23 @ 10:15 by Colette Barrera PA-C) Pre-op evaluation Surgical History H/O colonoscopy Social History Household Members: None Housing: Apartment Alcohol intake: never Patient Tobacco Use Status: Never used Tobacco Current occupational status: unemployed Physical Exam Vital Signs: BMI result Body Mass Index 55.1 Telehealth Telehealth Telehealth Platform: Telephone Location of provider rendering services: practice address Location of patient: address on file Patient Identification confirmed using: Name, : Yes Telehealth method: voice only Patient verbally consented to treatment: Yes Patient verbally consented to billing insurance company: Yes Patient informed of any privacy concerns related to visit: Yes Minutes spent on Phone/Video with Pt.: 30 Assessment & Plan Assessment & Plan (1) Morbid obesity: Code(s): E66.01 - Morbid (severe) obesity due to excess calories Category: Medical Plan: 1. Plan for lap sleeve gastrectomy including upper GI endoscopy. All tests has been completed and reviewed and the patient is cleared for the surgery. ?If diaphragmatic or ventral hernias are present at time of surgery, these will be repaired laparoscopically as well. Risks and complications were discussed in detail including possible conversion to an open procedure, anastomotic leak, bleeding requiring transfusion, small bowel obstruction, , DVT and pulmonary embolism, cardiac, or pulmonary complications, as chcf complications such as anastomotic ulcer, insufficient weight loss and vitamin deficiencies. I emphasized the importance of close follow-up, adherence to instructions and good communication. So far he has proven to be an excellent communicator and very compliant with all our directions accomplishing a great weight loss. I believe that he is an excellent candidate and he is ready. 2. Preop prescriptions were provided and explained the purpose of each one. Need to be purchased preop. Start Pantoprazole now as you get it from the pharmacy, 1 pill per day. Sucralfate and Zofran are for after surgery as needed. 3. Bowel prep: please do 7 packets ?of Miralax mixing each one with a an 8oz glass of water, crystal light, gatorade zero, or propel ?on 08/13/23 and the same amount on 08/14/23. The Miralax you begin with one packet at a time in 8oz water or crystal light, gatorade zero, or propel ?as early in the day as you can and you do them back to back until you finish them. Continue the protein shakes during? the bowel prep. 4. Needs to purchase 1oz medicine cups . 5. Needs to purchase Children's liquid Tylenol for postop pain control. 6. He needs to stop the Cyclobenzaprine and Trulicity as of today 08/04/23. Avoid aspirin, motrin, Advil, Aleve, Ibuprofen, Naproxyn. Tylenol is OK. 7. He needs to purchase the Celebrate 4:1 protein shakes from the hospital's gift shop. 8. Will do basic preop blood work-up any day between Saturday08/05/23 and Saturday08/09/23 fasting for 12 hours and is scheduled to see the Anesthesiologist prior to the day of surgery. 9. Importance of adherence to postop folllow-up and recommendations was underscored and she understands that. 10. Stop food and bars as of tomorrow 08/05/23 and continue with 5 CELEBRATE REBU ILD protein shakes (TWO scoops EACH in 8oz almond milk) at 9am-11am, 12pm-2pm, 3pm-5pm, 6pm-8pm and at 8pm-10pm 11. No soups, broths or V8 12. The patient's?medical?history has been reviewed and they are considered low risk for post op DVT and therefore DVT prophylaxis is not considered necessary. Travel after surgery was reviewed. The patient has not disclosed any travel plans during the first 30 days after surgery and they have been advised that within the first 30 days after surgery any bus, plane, train or car travel over 2 hours in duration is contraindicated due to the possibility of developing blood clots from immobility. Any travel, needs to include periods of ambulation of 10 minutes in duration every 2 hours.? Patient was instructed to discuss any plans for travel during this period with their bariatric surgeon.? 13. Use your CPAP daily and bring it to the hospital with your mask 14. Please take at the day of surgery the following medications: Only the Irbesatran under the following parameters: As of tomorrow please measure your blood pressure daily in the morning. If your blood pressure is: Below 120/70: do not take the Irbesatran 121/71 to 135/80: take HALF pill of Irbesatran Over 136/81: take the whole pill of Irbesatran 15. Check your blood sugar daily and let me know immediately if the blood sugar is below 100 or over 150 16. Absolutely no smoking or vaping, or marijuana until the surgery and for at least the first 4 weeks. Only nicotine patches are allowed. 17. Send me weight measurements TODAY and next Saturday08/11/23 and then on 08/15/23, the day of surgery before you go to the hospital. 18. Avoid any steroids by mouth for any reason. Let me know if someone prescribes them to you 19. These instructions supersede anything else you read in the handbook, anything you watched in videos or classes or you were told by any other provider. If there is any conflict, you follow the above instructions and nothi ng else. Orders: Orders Hemoglobin A1c 08/04/23 E66.01 - Morbid (severe) obesity due to excess calories Lipid Panel 08/04/23 E66.01 - Morbid (severe) obesity due to excess calories Type and Screen 08/04/23 E66.01 - Morbid (severe) obesity due to excess calories Partial Thromboplastin Time 08/04/23 E66.01 - Morbid (severe) obesity due to excess calories C Reactive Protein 08/04/23 E66.01 - Morbid (severe) obesity due to excess calories Complete Blood Count Auto Diff 08/04/23 E66.01 - Morbid (severe) obesity due to excess calories Insulin 08/04/23 E66.01 - Morbid (severe) obesity due to excess calories Vitamin D 25-OH Total 08/04/23 E66.01 - Morbid (severe) obesity due to excess calories Comprehensive Met. Panel 08/04/23 E66.01 - Morbid (severe) obesity due to excess calories TSH reflex Free T4 08/04/23 E66.01 - Morbid (severe) obesity due to excess calories Prothrombin Time INR 08/04/23 E66.01 - Morbid (severe) obesity due to excess calories Medications: New pantoprazole 40 mg PO DAILY 90 tabs 0RF K21.9 - Gastro-esophageal reflux disease without esophagitis sucralfate 10 mL PO BID 600 mL 2RF K21.9 - Gastro-esophageal reflux disease without esophagitis polyethylene glycol 3350 Mix each measuring cup with 8oz of water, Crystal light, or Gatorade zero, or Propel and do 7 measuring cups on 08/13/23 and another 7 measuring cups on 08/14/23 17 grams PO DAILY 238 grams 0RF Z01.818 - Encounter for other preprocedural examination ondansetron Only take one every 12 hours as needed if you have nausea 4 mg PO Q6H PRN 20 tabs 0RF nausea and vomiting R11.0 - Nausea
== END 2023-08-05 13:00 | disposition home or self-care (01) ==
LOC: HO.HBS 08:20
PROVIDERS: PCP Internal Medicine; Visit Provider Surgery
DX: E66.01 Morbid (severe) obesity due to excess calories (principal); Z68.43 Body mass index [BMI] 50.0-59.9, adult
CPT/HCPCS: 99499

== ENCOUNTER → 2023-08-05 08:20 | Outpatient (BNVA) | payer OTHER, SELFPAY | PROVIDERS: PCP Internal Medicine; Visit Provider Surgery | DX: E66.01 Morbid (severe) obesity due to excess calories (principal); K21.9 Gastro-esophageal reflux disease without esophagitis; R11.0 Nausea; Z01.818 Encounter for other preprocedural examination ==

== ENCOUNTER → 2023-08-09 10:55 | Outpatient (BNVA) | payer OTHER, SELFPAY | PROVIDERS: PCP Internal Medicine; Visit Provider Physician Assistant Surgical ==

== ENCOUNTER 2023-08-12 | Outpatient (REF) | payer OTHER, SELFPAY ==
[2023-08-09 10:44] LABS: MANUAL DIFF FLAG NO
[2023-08-09 11:58] LABS: Basophils Percent Auto 0.5 % (0-2); Eosinophils Absolute Auto 0.1 X10*3/uL (0.0-0.4); Eosinophils Percent Auto 1.7 % (0-4); Hematocrit 44.4 % (42.0-52.0); Imm Gran Abs Auto 0.01 X10*3/uL (0.00-0.03); Imm Gran Pct Auto 0.2 % (0.0-0.4); Lymphocytes Absolute Auto 2.9 X10*3/uL (1.2-4.9); Lymphocytes Percent Auto 44.5 % (20-40); Mean Corpuscular HGB Conc 33.8 g/dl (31.0-36.0); Mean Corpuscular Hemoglobin 29.9 pg (27.0-33.0); Mean Corpuscular Volume 88.4 fL (80.0-98.0); Mean Platelet Volume 10.3 fL (9.4-12.4); Monocytes Absolute Auto 0.5 X10*3/uL (0.1-1.2); Monocytes Percent Auto 7.5 % (2-11); Neutrophils Percent Auto 45.6 % (45-73); Platelet Count 186 X10*3/uL (160-400); Red Blood Count 5.02 X10*6/uL (4.60-5.80); Red Cell Distribution Width 12.9 % (11.0-16.0); White Blood Count 6.6 X10*3/uL (4.8-10.8)
[2023-08-09 12:07] LABS: Prothrombin Time 11.6 SEC (11.1-13.3)
[2023-08-09 12:08] LABS: Estimated Average Glucose 137 mg/dL; Hemoglobin A1C 185.3959 umol/L; Hemoglobin A1c % 6.4 % (<6.0)
[2023-08-09 12:41] LABS: Alanine Aminotransferase 31 U/L (0-40); Albumin Level 3.9 g/dL (3.5-5.0); Alkaline Phosphatase 77 U/L (39-117); Anion Gap 11 (12-20); Aspartate Amino Transferase 19 U/L (5-37); Bilirubin Total 0.7 mg/dL (0.0-1.0); Blood Urea Nitrogen 21 mg/dL (9-16); Calcium 9.7 mg/dL (8.4-10.2); Carbon Dioxide 25 mmol/L (22-29); Chloride 107 mmol/L (96-108); Cholesterol 267 mg/dL (<200); Estimated Glomerular Filt Rate > 60; Glucose Random 120 mg/dL (60-115); HDL Cholesterol 35 mg/dL (>40); LDL Cholesterol Calculated 186 mg/dL (<100); Potassium 4.1 mmol/L (3.3-5.1); Sodium 139 mmol/L (135-145); Total Protein 7.4 g/dL (6.5-8.0); Triglycerides 233 mg/dL (<150)
[2023-08-09 12:43] LABS: Insulin 10 uU/mL (2-29); TSH reflex Free T4 2.36 uIU/mL (0.32-4.0); Vitamin D 25-OH Total 26.4 ng/mL (>30)
== END 2023-08-12 00:01 | disposition home or self-care (01) ==
LOC: HO.PAT
PROVIDERS: PCP Internal Medicine; Visit Provider Surgery
DX: Z01.812 Encounter for preprocedural laboratory examination (principal); E66.01 Morbid (severe) obesity due to excess calories
CPT/HCPCS: 36415; 80053; 80061; 82306; 83036; 83525; 84443; 85025; 85610; 85730; 86140; 86850; 86900; 86901

== ENCOUNTER 2023-08-16 10:40 | Outpatient (AMB) | payer OTHER, SELFPAY ==
[2023-08-16 10:43] VITALS: BP 138/82; PULSE 59; O2SAT 96; BMI 55.3
--- NOTE | 2023-08-16 10:43 | MHC.OFFVIS ---
Vital Signs 08/16/23 10:43 Height 5 ft 8 in Weight 363 lb 12.203 oz BMI 55.3 BP 138/82 Blood Pressure Location Rt brachial Position Sitting Pulse 59 Pulse Source Doppler Pulse Oximetry (%) 96 Oxygen Delivery Method Room Air Intake Visit Reasons: Sleep apnea Legal Executive Required: Yes Legal Executive Name: Yvonne Bush Daysi Allergies No Known Allergies Allergy (Verified 08/16/23 10:49) HPI HPI Sleep apnea: Details: 62-year-old gentleman with underlying morbid obesity and recent diagnosis of obstructive sleep apnea referred for management of his sleep issues. Patient had split sleep study that demonstrated underlying severe obstructive sleep apnea with good control on CPAP of 10 cm of water. He is interested in pursuing CPAP therapy. [facility] Medical History (Updated 08/12/23 @ 07:[address] RN) Diabetes Sleep apnea Elevated cholesterol HTN (hypertension) Pre-op evaluation Surgical History H/O colonoscopy Social History Household Members: None Housing: Apartment Alcohol intake: never Patient Tobacco Use Status: Never used Tobacco Current occupational status: unemployed Review of Systems Const Denies daytime sleepiness, Denies excessive sweating, Denies fatigue, Denies fever(s), Denies lethargy, Denies malaise, Denies night sweats, Denies snoring and Denies weight loss Eyes Denies blurry vision and Denies itchy eyes ENT Denies nasal congestion, Denies post nasal drip, Denies sinus pain, Denies sinus pressure and Denies other ( Thrush) Card Denies chest pain, Denies pedal edema, Denies dyspnea, Denies orthopnea and Denies paroxysmal nocturnal dyspnea Resp Denies cough, Denies hemoptysis, Denies excessive phlegm production, Denies dyspnea, Denies snoring and Denies wheezing GI Denies abdominal pain and Denies heartburn Musc Denies myalgias, Denies arthralgias and Denies joint swelling Skin/Breast Denies rash Neuro Denies memory loss and Denies seizure-like activity Psych Denies abnormal sleep pattern, Denies anxiety and Denies memory loss Endo Denies excessive sweating, Denies fatigue and Denies heat intolerance Be/Lymph Denies easy bruising Aller/Immun Denies itchy eyes, Denies seasonal rhinorrhea and Denies wheezing Physical Exam Vital Signs: Last Vital Signs Pulse 59 08/16/23 10:43 BP 138/82 08/16/23 10:43 Pulse Ox 96 08/16/23 10:43 Oxygen Delivery Method Room Air 08/16/23 10:43 BMI result Body Mass Index 55.3 Const General: no acute distress and alert Nutritional Appearance: obese Orientation/consciousness: Other orientation findings ( oriented) HEENT Head: Yes atraumatic Eyes General: appearance normal, both eyes and all related structures Sclerae: sclerae normal EOM: EOMs intact bilaterally Neck Neck: Yes supple Lymphatic: no lymphadenopathy noted Resp Effort & Inspection: normal respiratory effort and no use of accessory muscles Auscultation: clear to auscultation bilaterally Cardio Rate: regular rate Rhythm: regular rhythm Heart sounds: no gallops, no murmurs and no rubs Skin General skin exam: other ( warm) Extrem General: No clubbing, No cyanosis and No edema Assessment & Plan Assessment & Plan (1) Sleep apnea: Code(s): G47.30 - Sleep apnea, unspecified Category: Medical (2) Morbid obesity: Code(s): E66.01 - Morbid (severe) obesity due to excess calories Category: Medical Plan Results of split sleep study reviewed underlying severe obstructive sleep apnea with good control on CPAP of 10 cm of water. Will start on APAP of 6-16 cm of water. Coding Level of Care Code New Pt Level 3 (52641) Diagnoses Sleep apnea G47.30 Morbid obesity E66.01
== END 2023-08-16 11:01 | disposition home or self-care (01) ==
PROVIDERS: PCP Internal Medicine; Visit Provider Internal Medicine Pulmonary Disease
DX: G47.30 Sleep apnea, unspecified (principal); E66.01 Morbid (severe) obesity due to excess calories
CPT/HCPCS: 99203

== ENCOUNTER → 2023-08-16 10:40 | Outpatient (BNVA) | payer OTHER, SELFPAY | PROVIDERS: PCP Internal Medicine; Visit Provider Internal Medicine Pulmonary Disease | DX: G47.30 Sleep apnea, unspecified (principal); E66.01 Morbid (severe) obesity due to excess calories; Z68.43 Body mass index [BMI] 50.0-59.9, adult | CPT/HCPCS: 99202 ==

== ENCOUNTER 2023-08-19 10:23 | Outpatient (AMB) | payer OTHER, SELFPAY ==
--- NOTE | 2023-08-19 10:28 | A.OFFVIS_ITS ---
VS Expanded 08/19/23 10:35 BP 144/68 H Blood Pressure Location Rt brachial Blood Pressure Position Sitting Pulse 70 Pulse Source Pulse Oximeter Temp 96.4 F L Temperature Source Tympanic Pulse Oximetry 93 Oxygen Delivery Method Room Air Height 5 ft 8 in Weight 357 lb 6.4 oz BMI 54.3 Body Fat % 45.6 Body Fat Mass 163.0 Fat Free Mass 194.4 Visceral Fat Rating 37.0 Body Water % 43.6 Body Water Mass 155.6 Muscle Mass/Score 185.0 Basal Metabolic Rate/Score 2,799 Intake Visit Reasons: (OV) Follow Up [facility] Allergies No Known Allergies Allergy (Verified 08/19/23 10:38) HPI Comments Details: Overall weight loss: 36.2lbs, or 9.17% TBWL Is doing 2 Celebrate Rebuild shakes (1 scoop each in 8oz almond milk), 2 boiled eggs and one meal (does not measure portions) Exercise: walks with a walker and a cane [facility] Medical History (Updated 08/12/23 @ 07:[address] RN) Diabetes Sleep apnea Elevated cholesterol HTN (hypertension) Pre-op evaluation Surgical History H/O colonoscopy Social History Household Members: None Housing: Apartment Alcohol intake: never Patient Tobacco Use Status: Never used Tobacco Current occupational status: unemployed Physical Exam Vital Signs: Last Vital Signs Temp 96.4 F L 08/19/23 10:35 Pulse 70 08/19/23 10:35 BP 144/68 H 08/19/23 10:35 Pulse Ox 93 08/19/23 10:35 Oxygen Delivery Method Room Air 08/19/23 10:35 BMI result Body Mass Index 54.3 GI Inspection: Yes normal to inspection (gynecoid body habitus) and Yes obesity Palpation (GI): Soft to palpation Extrem Right lower extremity: normal to inspection (lower extremity edema) Left lower extremity: normal to inspection (lower extremity edema) Assessment & Plan Assessment & Plan (1) Morbid obesity: Code(s): E66.01 - Morbid (severe) obesity due to excess calories Category: Medical Plan: 1) New diet plan: Celebrate Rebuild shake (one scoop in 8oz almond milk) at 9am- 11am Celebrate protein bar (buy at hospital gift shop) 12-2pm Celebrate Yoel inder (one scoop in 8oz almond milk) at 3pm-5pm Dinner at 6pm (10 forks of p rotein and 10 forks of salad or vegetables) Celebrate protein bar (buy at hospital gift shop) at 8pm-10pm 2) send me weight measurements from your scale weekly on Fridays 3) buy a used stationary bike and I will tell you how to use it effectively
[2023-08-19 10:35] VITALS: BP 144/68; PULSE 70; TEMP 35.8; O2SAT 93; BMI 54.3
== END 2023-08-19 19:18 | disposition home or self-care (01) ==
PROVIDERS: PCP Internal Medicine; Visit Provider Surgery
DX: E66.01 Morbid (severe) obesity due to excess calories (principal)
CPT/HCPCS: 99214

== ENCOUNTER → 2023-08-19 10:23 | Outpatient (BNVA) | payer OTHER, SELFPAY | PROVIDERS: PCP Internal Medicine; Visit Provider Surgery | DX: E66.01 Morbid (severe) obesity due to excess calories (principal); Z68.36 Body mass index [BMI] 36.0-36.9, adult | CPT/HCPCS: 99212 ==